=== PATIENT | male | born 1995 | race Caucasian/White ===

== ENCOUNTER 2024-08-16 07:50 | Day surgery (SDC) | payer OTHER ==
[~2024-08-16] VITALS: Ht 177.8 cm; Wt 99.8 kg
[~2024-08-16 07:50] MED LIST: CEFD1CAP9 PO
[2024-08-16] MEDS ORDERED: ROCURONIUM BROMIDE 50MG/5ML VIAL As Ordered ONE (07:54)
[2024-08-16] MEDS ORDERED: ONDANSETRON 4MG 2ML VIAL As Ordered ONE (07:54)
[2024-08-16] MEDS ORDERED: LIDOCAINE 2% 100MG/5ML SDV (FOR ANES.) As Ordered ONE (07:54)
[2024-08-16] MEDS ORDERED: propofoL 200 MG/20 ML VIAL As Ordered ONE (07:54)
[2024-08-16] MEDS ORDERED: SUGAMMADEX SODIUM 500 MG/5 ML VIAL (BRIDION) As Ordered ONE (07:54)
[2024-08-16] MEDS ORDERED: MIDAZOLAM INJ 2MG/2ML VIAL As Ordered ONE (07:57)
[2024-08-16] MEDS ORDERED: fentaNYL 100 MCG/2 ML INJECTION As Ordered ONE (07:57)
[2024-08-16] MEDS ORDERED: LR 1,000 ML IV SCH (08:10)
[2024-08-16] MEDS ORDERED: OXYMETAZOLINE 0.05% NASAL SPRAY As Ordered ONE (10:09)
[2024-08-16] MEDS ORDERED: PHENYLephrine 500MCG 5ML (100MCG/ML) SYRINGE As Ordered ONE (10:36)
[2024-08-16] MEDS ORDERED: ePHEDrine SULFATE 25 MG/5 ML(5MG/ML) SYRINGE As Ordered ONE (10:36)
[2024-08-16] MEDS ORDERED: HYDROmorphone HCL 2MG/ML 1ML VIAL As Ordered ONE (10:44)
[2024-08-16] MEDS ORDERED: fentaNYL 100 MCG/2 ML INJECTION IV PRN (11:20)
[2024-08-16] MEDS ORDERED: MORPHINE 2 MG/ML 1ML VIAL IV PRN (11:20)
[2024-08-16] MEDS: oxyCODONE 5MG TAB PO PRN (12:01)
[2024-08-16] MEDS: ONDANSETRON 4MG 2ML VIAL IV PRN (12:01)
[2024-08-16 12:40] VITALS: BP 126/71; TEMP 97; O2SAT 98
== END 2024-08-16 13:05 | disposition home or self-care (01) ==
LOC: M SDC 07:50
PROVIDERS: ATTEND Otolaryngology
DX: J35.01 Chronic tonsillitis (principal); Z87.891 Personal history of nicotine dependence
CPT/HCPCS: 42826; 88302; J1100; J1171; J2250; J2371; J2405; J3010

== ENCOUNTER → 2025-02-10 | Outpatient (REF) | payer OTHER ==
[2025-02-10 09:42] LABS: SEMEN APPEARANCE OPAQUE (OPAQUE); SEMEN VISCOSITY LIQUID (LIQUID); SEMEN VOLUME 3.9 ml (2.0-5.0); SPERM CONCENTRATION 65.3 M/ml (>=15.0); WBC CONCENTRATION >1 M/ml (<=1 M/ml)
[2025-02-10 09:43] LABS: TOTAL PROGRESSIVE SPERM 132.1 M/Ejac.
== END ==
LOC: M LAB REF 09:39
PROVIDERS: ATTEND Obstetrics & Gynecology
DX: N46.9 Male infertility, unspecified (principal)